=== PATIENT | female | born 2000 | race Caucasian/White ===

== ENCOUNTER 2022-01-02 19:33 | Emergency (ER) | payer OTHER ==
[~2022-01-02] VITALS: Ht 160 cm; Wt 69.1 kg
[2022-01-02 19:43] VITALS: TEMP 98.2
[2022-01-02 21:32] VITALS: BP 120/61; PULSE 80
== END 2022-01-02 21:35 | disposition home or self-care (01) ==
LOC: COL.ER 19:33
DX: J95.830 Postprocedural hemorrhage of a respiratory system organ or structure following a respiratory system procedure (principal); Z90.89 Acquired absence of other organs